=== PATIENT | female | born 1970 | race Hispanic/Latino ===

== ENCOUNTER 2021-12-07 08:56 | Outpatient (CLI) | payer BC | END 2021-12-07 08:57 | disposition home or self-care (01) | LOC: SCSMRI 08:56 | PROVIDERS: ATTEND Surgery | DX: M50.21 Other cervical disc displacement, high cervical region (principal); M48.02 Spinal stenosis, cervical region | CPT/HCPCS: 72125; 72141 ==

== ENCOUNTER 2022-03-09 12:40 | Outpatient (CLI) | payer BC | END 2022-03-09 12:41 | disposition home or self-care (01) | LOC: TBSIIMAG 12:40 | PROVIDERS: ATTEND Physician Assistant | DX: M54.12 Radiculopathy, cervical region (principal); Z98.1 Arthrodesis status | CPT/HCPCS: 72040 ==